=== PATIENT | female | born 1995 | race Hispanic/Latino ===

== ENCOUNTER 2018-03-25 18:28 | Emergency (ER) | payer OTHER ==
[~2018-03-25] VITALS: Ht 157.5 cm; Wt 70.0 kg
[2018-03-25 18:37] VITALS: BP 135/68
[2018-03-25] MEDS ORDERED: BACTRIM DS1 TAB PO (18:57)
== END 2018-03-25 19:17 | disposition home or self-care (01) | DRG 603 ==
LOC: ED 18:28
PROC: 0H98XZZ Drainage of Buttock Skin, External Approach (ICD-10-PCS; principal; 2018-03-25)
DX: L05.01 Pilonidal cyst with abscess (principal)

== ENCOUNTER 2018-03-26 19:27 | Emergency (ER) | payer OTHER ==
[~2018-03-26] VITALS: Ht 157.5 cm; Wt 59.6 kg
[~2018-03-26 19:27] MED LIST: BACTRIM DS1 TAB PO
[2018-03-26 20:00] VITALS: BP 121/69
== END 2018-03-26 20:00 | disposition home or self-care (01) | DRG 951 ==
LOC: ED 19:27
DX: Z48.01 Encounter for change or removal of surgical wound dressing (principal)